=== PATIENT | male | born 2000 | race Caucasian/White ===

== ENCOUNTER → 2022-09-30 | Outpatient (CLI) | payer BC ==
[2022-09-30 21:16] LABS: HIV 1&2 SCREEN NEGATIVE (NEGATIVE)
[2022-09-30 21:24] LABS: HEPATITIS C VIRUS ABY INDEX 0.12 INDEX (<0.8)
== END ==
LOC: M WUC 15:23
PROVIDERS: ATTEND Physician Assistant
DX: Z02.5 Encounter for examination for participation in sport (principal)